=== PATIENT | female | born 1945 | race Caucasian/White ===

== ENCOUNTER 2018-11-29 06:45 | Day surgery (SDC) | payer OTHER ==
[~2018-11-29] VITALS: Ht 157.5 cm; Wt 73.5 kg
[2018-11-29] MEDS ORDERED: CLINDAMYCIN PHOS 600 MG/ D5W 50 ML PREMIX IV ONE (08:15)
[2018-11-29] MEDS ORDERED: ONDANSETRON HCL 4 MG/2 ML VIAL IVP PRN (09:00)
[2018-11-29] MEDS ORDERED: LR 1,000 ML IV SCH (09:54)
[2018-11-29] MEDS ORDERED: KETOROLAC TROMETHAMINE 30 MG VIAL IVP PRN (10:00)
[2018-11-29] MEDS ORDERED: MEPERIDINE HCL/PF 25 MG/ML DISP.SYRIN IVP PRN (10:00)
[2018-11-29] MEDS ORDERED: KETOROLAC TROMETHAMINE 30 MG VIAL IM ONE (10:00)
[2018-11-29] MEDS ORDERED: MEPERIDINE HCL/PF 50 MG/ML AMP IVP PRN ×2 (10:00)
[2018-11-29 11:50] VITALS: BP_SYST 114
== END 2018-11-29 11:45 | disposition home or self-care (01) ==
LOC: SDS 06:45 → SMU 06:45 → SDS 11:45
PROVIDERS: ATTEND Specialist
DX: N95.0 Postmenopausal bleeding (principal); C54.1 Malignant neoplasm of endometrium; I10 Essential (primary) hypertension; G40.909 Epilepsy, unspecified, not intractable, without status epilepticus; G89.29 Other chronic pain; M19.90 Unspecified osteoarthritis, unspecified site; E11.9 Type 2 diabetes mellitus without complications; E66.3 Overweight; Z88.8 Allergy status to other drugs, medicaments and biological substances
CPT/HCPCS: 58558; 82962; 88305; 88341; 88342; 88361; J3490; J7120